=== PATIENT | female | born 1930 | race Caucasian/White ===

== ENCOUNTER → 2016-05-16 | Outpatient (CLI) | payer MEDICARE, OTHER ==
--- NOTE | 2016-05-16 14:42 | RADRPT ---
PROCEDURE: XR pelvis/right hip. CLINICAL INDICATION: Hip pain TECHNIQUE: AP pelvis/AP and lateral right hip views available for review. COMPARISON: None available FINDINGS: The osseous structures are normal in mineralization, architecture and alignment. No fractures are i dentified. No osseous lesions are identified. There is mild bilateral hip osteoarthrosis. The sof t tissues are unremarkable. IMPRESSION: Mild bilateral hip osteoarthrosis RPTAT: [facility] .Carlos Huston MD, MD Date Time Electronically viewed and signed by .Carlos Huston MD, on 05/16/2016 14:41 .B/
== END | disposition home or self-care (01) ==
LOC: HKI 14:14
PROVIDERS: ATTEND Orthopaedic Surgery
DX: M51.36 Other intervertebral disc degeneration, lumbar region (principal); M54.16 Radiculopathy, lumbar region
CPT/HCPCS: 73502; G0463